=== PATIENT | female | born 1975 | race Caucasian/White ===

== ENCOUNTER 2018-01-01 18:24 | Inpatient (IN) | payer MEDICAID ==
[~2018-01-01] VITALS: Ht 162.6 cm; Wt 112.0 kg
[~2018-01-01 18:24] MED LIST: ACETAMINOPHEN 325 MG TAB PO PRN; BISACODYL 10 MG SUPP RECTAL PRN; HYDROmorphone HCL PF 1 MG/ML VIAL IV PUSH PRN; LACTULOSE SYRUP 20 GM/30 ML CUP PO PRN; LEVO125T4 PO; LOVA40TA PO; MAGN400T2 PO; MAGN400T24; MAGNESIUM HYDROXIDE SUSP 30 ML CUP PO PRN; METOCLOPRAMIDE HCL 10 MG/2 ML VIAL IV PUSH PRN; NALOXONE HCL 0.4 MG/ML AMP IV PUSH PRN; OMEP40CA2 PO; ONDANSETRON HCL 4 MG/2 ML VIAL IVP PRN; PROM25TA10 PO; PROP10TA6 PO; PROP80TA PO; SENNOSIDES 8.6 MG TAB PO PRN; SODIUM CHLORIDE 0.9% FLUSH 10 ML FLUSH IV FLUSH PRN; TEMAZEPAM 15 MG CAP PO PRN; TRAM50TA PO; XANA1TAB2 PO; oxyCODONE/ACETAMINOPHEN 10 MG/325 MG TAB PO PRN; oxyCODONE/ACETAMINOPHEN 5 MG/325 MG TAB PO PRN
[2018-01-01 18:45] VITALS: BP 117/87; PULSE 76; RESP 14; TEMP 96.3; O2SAT 93
[2018-01-01] MEDS: PROCHLORPERAZINE INJ 10 MG/2 ML VIAL IV PRN (19:14)
[2018-01-01] MEDS: LACTATED RINGER'S 1000 ML INJ 1,000 ML IV SCH (19:16)
[2018-01-01 20:00] VITALS: PULSE 75
[2018-01-01] MEDS: SODIUM CHLORIDE 0.9% FLUSH 10 ML FLUSH IV FLUSH SCH (21:00)
[2018-01-01] MEDS: DOCUSATE SODIUM 50 MG/SENNA 8.6 MG TAB PO SCH (21:00)
[2018-01-01] MEDS ORDERED: SODIUM CHLORIDE 0.9% FLUSH 10 ML FLUSH IV FLUSH SCH (21:00)
[2018-01-01] MEDS: PROPRANOLOL HCL 40 MG TAB PO SCH ×2 (21:00→21:15)
[2018-01-01] MEDS: ENOXAPARIN SODIUM 30 MG/0.3 ML SYRINGE SQ SCH (21:16)
[2018-01-01 21:22] VITALS: O2SAT 98
[2018-01-01] MEDS: HYDROmorphone HCL PF 2 MG/ML VIAL IV PRN (22:08)
[2018-01-01] MEDS ORDERED: HYDROmorphone HCL PF 2 MG/ML VIAL IV PRN (22:15)
[2018-01-01 22:24] LABS: CHOLESTEROL/ HDL RATIO 7.52 RATIO; HDL CHOLESTEROL 26.3 MG/DL (40.0-60.0)
[2018-01-02] VITALS: BP 120/65; PULSE 71; RESP 18; TEMP 96.3; O2SAT 94
[2018-01-02] MEDS: ALPRAZolam 1 MG TAB PO PRN ×2 (01:16→20:58)
[2018-01-02] MEDS: PROCHLORPERAZINE INJ 10 MG/2 ML VIAL IV PRN ×3 (02:21→17:48)
[2018-01-02] MEDS: LACTATED RINGER'S 1000 ML INJ 1,000 ML IV SCH (03:49)
[2018-01-02] MEDS: HYDROmorphone HCL PF 2 MG/ML VIAL IV PRN ×5 (03:52→23:54)
[2018-01-02 04:00] VITALS: BP 101/58; PULSE 82; RESP 18; TEMP 96.2; O2SAT 93
[2018-01-02] MEDS: LEVOTHYROXINE SODIUM 125 MCG TAB PO SCH (06:03)
[2018-01-02 07:08] LABS: BASOPHIL # 0.1 TH/MM3 (0-0.2); BASOPHIL % 0.7 % (0.0-2.0); EOSINOPHIL # 0.2 TH/MM3 (0-0.4); EOSINOPHIL % 1.4 % (0.0-4.0); HEMATOCRIT 33.4 % (35.0-46.0); HEMOGLOBIN 10.4 GM/DL (11.6-15.3); LYMPH % 31.1 % (9.0-44.0); LYMPHOCYTE # 3.6 TH/MM3 (1.0-4.8); MEAN CELL VOLUME 78.9 FL (80.0-100.0); MEAN CORPUSCULAR HEMOGLOBIN 24.5 PG (27.0-34.0); MEAN PLATELET VOLUME 8.9 FL (7.0-11.0); MONO % 4.9 % (0.0-8.0); MONOCYTE # 0.6 TH/MM3 (0-0.9); NEUT % 61.9 % (16.0-70.0); PLATELET COUNT 268 TH/MM3 (150-450); RED BLOOD COUNT 4.24 MIL/MM3 (4.00-5.30); RED CELL DISTRIBUTION WIDTH 17.1 % (11.6-17.2); WHITE BLOOD COUNT 11.4 TH/MM3 (4.0-11.0)
[2018-01-02 07:16] LABS: CHLORIDE 109 MEQ/L (98-107); SODIUM (NA) 142 MEQ/L (136-145)
[2018-01-02 07:24] LABS: ALBUMIN 2.5 GM/DL (3.4-5.0); BLOOD UREA NITROGEN 9 MG/DL (7-18); GLUCOSE,RANDOM 88 MG/DL (74-106); MAGNESIUM 1.2 MG/DL (1.5-2.5)
[2018-01-02 07:26] LABS: ALT (GPT) 12 U/L (10-53); AST (GOT) 11 U/L (15-37)
[2018-01-02 07:27] LABS: GLOMERULAR FILTRATION RATE 29 ML/MIN (>89); PHOSPHORUS 3.4 MG/DL (2.5-4.9)
[2018-01-02 07:28] LABS: TOTAL BILIRUBIN ADULT 0.6 MG/DL (0.2-1.0); TOTAL PROTEIN 6.1 GM/DL (6.4-8.2)
[2018-01-02 07:29] LABS: ALKALINE PHOSPHATASE 80 U/L (45-117)
[2018-01-02 08:00] VITALS: BP 112/68; PULSE 75; PULSE 78; RESP 18; TEMP 96; O2SAT 95
[2018-01-02] MEDS ORDERED: NS + KCL 20 MEQ INJ 1,000 ML IV SCH (08:00)
[2018-01-02] MEDS: PRAVASTATIN SOD 40 MG TAB PO SCH (08:07)
[2018-01-02] MEDS: PANTOPRAZOLE SOD 40 MG DELAYED RELEASE TAB PO SCH (08:07)
[2018-01-02] MEDS: DOCUSATE SODIUM 50 MG/SENNA 8.6 MG TAB PO SCH ×2 (08:09→19:08)
[2018-01-02] MEDS: SODIUM CHLORIDE 0.9% FLUSH 10 ML FLUSH IV FLUSH SCH ×2 (08:09→21:00)
[2018-01-02] MEDS ORDERED: traMADol HCL 50 MG TAB PO PRN (09:30)
[2018-01-02 10:03] LABS: FREE T4 1.39 NG/DL (0.76-1.46)
--- NOTE | 2018-01-02 11:19 | HHI.HP ---
[facility] No Primary Care Physician Admission Diagnosis Diagnoses: History of Present Illness nausea, vomiting, diarrhea diarhrea is for a month - 8-9 x a day, or soon as she eats something was on outpatient antibiotics luis manuel arellano has been eating broths and sti having darrhe abdominal pain is both upper and lower abdomena dn across to flank bialterally never had fever was on prednisone at home cholecystectomy was about 2 yrs ago- but was normal bowel movement after that, and all symptoms happened only past one month vomiting is about 5 x a day - for past 3 days no blood in it only when she wipes her buttocks, that she has streaks of blood- has hx of throbosed hemorroids abdominal pain is recent- maybe 4 days ago has increase of synthroid from 125 to 150 mcg about 4 weeks ago was told parathyroid issues and was waiting for insurance issues to see endocrinoogist have been havign palpitiation but no chest pain dyspnea is only last night, partly because she did not take her xanax dizziness because she has no strenght and even needed help from for taking shower has stage IV kidney dx was told she has nephrotic syndrome- [facility] Dr Enriquez did have kidney biopsy- was told nephrotic syndrome, but not due to SLE father has PCKD noticed she has to push hard to urinate, for past few weeks- has hx of kidney stones prior requring sx, and was told by her neph that it maybe secondary to it Review of Systems Except as stated in HPI: all other systems reviewed are Neg Past Family Social History Past Medical History htn anemia heart murmur when she was born stage IV CKD chronic hypomagnesemia palpitations due to hypomagnesium SLE - systemic - diagnosed in 2012- bones, muscles, pancreas, eyes, skin rash, memory impairment hypothyroidism gastroparesis no lung or liver issues no tia /cva seizure- diagonsed abnout 6 yrs ago, based on eye symptoms from lupus and pt is not taking any seizure meds melanoma at left upper extremity at age 6 yo- had 5 surgeries for it Past Surgical History left arm sx for melanoma at age 6 yo tonsilectomy kidney stone sx hysterectomy partial D+C emergency 2 perianal hemorrhoidectomy another hemorridectomy cholecystectomy kidney biopsy Allergies: Coded Allergies: codeine (Verified Allergy, Severe, 01/01/18) iodine (Verified Allergy, Severe, 01/01/18) metoclopramide (Verified Allergy, Severe, HIVES, 01/01/18) ondansetron (Verified Allergy, Severe, 01/01/18) Uncoded Allergies: Oral pain medications (Allergy, Unknown, Per patient allergic to all oral pain medications., 09/30/17) Family History mother- lupus , cva, brain aneurysm, ischemic bowel father- kidney pckd brother- pckd grandmother- cva Social History smokes about 8 cigarrettes a day only once in a while drinking wine no drugs Physical Exam Vital Signs Vital Signs Date Time Temp Pulse Resp B/P (MAP) Pulse Ox O2 Delivery O2 Flow Rate FiO2 01/02/18 08:00 96.0 75 18 112/68 (83) 95 01/02/18 08:00 78 01/02/18 04:00 96.2 82 18 101/58 (72) 93 01/02/18 00:00 96.3 71 18 120/65 (83) 94 01/01/18 21:22 98 21 01/01/18 20:00 75 01/01/18 18:45 96.3 76 14 117/87 (97) 93 Physical Exam GENERAL: This is a well-nourished, well-developed patient, in no apparent distress. SKIN: No rashes, ecchymoses or lesions. Cool and dry. HEAD: Atraumatic. Normocephalic. No temporal or scalp tenderness. EYES: No scleral icterus. No injection or drainage. ENT: Nose without bleeding, purulent drainage or septal hematoma. Airway patent. NECK: Trachea midline. No JVD. Supple, nontender, no meningeal signs. CARDIOVASCULAR: Regular rate and rhythm without murmurs, gallops, or rubs. RESPIRATORY: Clear to auscultation. Breath sounds equal bilaterally. No wheezes , rales, or rhonchi. GASTROINTESTINAL: Abdomen soft, nondistended. . No guarding.tenderness diffusely MUSCULOSKELETAL: Extremities without clubbing, cyanosis, or edema. No calf tenderness. NEUROLOGICAL: Awake and alert. Motor and sensory grossly within normal limits. Normal speech. Laboratory Laboratory Tests Test 01/01/18 15:05 01/02/18 05:55 C-Reactive Protein 1.70 Triglycerides Level 287 Cholesterol Level 198 LDL Cholesterol 114 HDL Cholesterol 26.3 Cholesterol/HDL Ratio 7.52 White Blood Count 11.4 Red Blood Count 4.24 Hemoglobin 10.4 Hematocrit 33.4 Mean Corpuscular Volume 78.9 Mean Corpuscular Hemoglobin 24.5 Mean Corpuscular Hemoglobin Concent 31.0 Red Cell Distribution Width 17.1 Platelet Count 268 Mean Platelet Volume 8.9 Neutrophils (%) (Auto) 61.9 Lymphocytes (%) (Auto) 31.1 Monocytes (%) (Auto) 4.9 Eosinophils (%) (Auto) 1.4 Basophils (%) (Auto) 0.7 Neutrophils # (Auto) 7.0 Lymphocytes # (Auto) 3.6 Monocytes # (Auto) 0.6 Eosinophils # (Auto) 0.2 Basophils # (Auto) 0.1 CBC Comment AUTO DIFF Differential Comment AUTO DIFF CONFIRMED Platelet Estimate NORMAL Platelet Morphology Comment NORMAL Blood Urea Nitrogen 9 Creatinine 1.90 Random Glucose 88 Total Protein 6.1 Albumin 2.5 Calcium Level 8.0 Phosphorus Level 3.4 Magnesium Level 1.2 Alkaline Phosphatase 80 Aspartate Amino Transf (AST/SGOT) 11 Alanine Aminotransferase (ALT/SGPT) 12 Total Bilirubin 0.6 Sodium Level 142 Potassium Level 3.5 Chloride Level 109 Carbon Dioxide Level 25.0 Anion Gap 8 Estimat Glomerular Filtration Rate 29 Amylase Level 48 Lipase 424 Free Thyroxine 1.39 Thyroid Stimulating Hormone 3rd Gen 0.862 Result Diagram: 01/02/1855401/02/18554 Caprini VTE Risk Assessment Caprini VTE Risk Assessment: Mod/High Risk (score >= 2) Caprini Risk Assessment Model Point Value = 1 Point Value = 2 Point Value = 3 Point Value = 5 Age 41-60 Minor surgery BMI > 25 kg/m2 Swollen legs Varicose veins or History of unexplained or recurrent spontaneous Oral contraceptives or hormone replacement Sepsis (< 1 month) Serious lung disease, including pneumonia (< 1 month) Abnormal pulmonary function Acute myocardial infarction Congestive heart failure (< 1 month) History of inflammatory bowel disease Medical patient at bed rest Age 61-74 Arthroscopic surgery Major open surgery (> 45 min) Laparoscopic surgery (> 45 min) Malignancy Confined to bed (> 72 hours) Immobilizing plaster cast Central venous access Age >= 75 History of VTE Family history of VTE Factor V Leiden Prothrombin [id number] Lupus anticoagulant Anticardiolipin antibodies Elevated serum homocysteine Heparin-induced thrombocytopenia Other congenital or acquired thrombophilia Stroke (< 1 month) Elective arthroplasty Hip, pelvis, or leg fracture Acute spinal cord injury (< 1 month) Prophylaxis Regimen Total Risk Factor Score Risk Level Prophylaxis Regimen 0-1 Low Early ambulation 2 Moderate Order ONE of the following: *Sequential Compression Device (SCD) *Heparin 5000 units SQ BID 3-4 Higher Order ONE of the following medications: *Heparin 5000 units SQ TID *Enoxaparin/Lovenox 40 mg SQ daily (WT < 150 kg, CrCl > 30 mL/min) *Enoxaparin/Lovenox 30 mg SQ daily (WT < 150 kg, CrCl > 10-29 mL/min) *Enoxaparin/Lovenox 30 mg SQ BID (WT < 150 kg, CrCl > 30 mL/min) AND/OR *Sequential Compression Device (SCD) 5 or more Highest Order ONE of the following medications: *Heparin 5000 units SQ TID (Preferred with Epidurals) *Enoxaparin/Lovenox 40 mg SQ daily (WT < 150 kg, CrCl > 30 mL/min) *Enoxaparin/Lovenox 30 mg SQ daily (WT < 150 kg, CrCl > 10-29 mL/min) *Enoxaparin/Lovenox 30 mg SQ BID (WT < 150 kg, CrCl > 30 mL/min) AND *Sequential Compression Device (SCD) Assessment and Plan Assessment and Plan Impression: Acute pancreatitis mild leukocytosis with left shift hypmagnesium Plan: r/o ischemia - check lacate - given abdomen pain out of proportion to physical exam ct abdomen and pelvis cannnot be done as pt has severe allergy to iodine with anaphylaxis obtain US of abdomen gi consult for colonoscopy no bowel obstruction on xray stool studies stool for guiaic and cdiff iv hydration npo pain control no antibiotics for now replace electrolytes ua reviewed, negative for infection resume home meds pt is admitted as inpatient- agreed with certification chronically ill immunocompromised patient with systemic lupus, and chronic diarrhea- will need further workup. dvt prophylaxis with lovenox renal adjusted dose gi prophylaxis with pantoprazole Discussed Condition With patient, Cindi Lebron MD Jan 02, 2018 11:19
[2018-01-02] MEDS ORDERED: HYDROmorphone HCL PF 2 MG/ML VIAL IV PUSH PRN (11:45)
[2018-01-02 12:00] VITALS: BP 145/85; PULSE 84; RESP 16; TEMP 96.1; O2SAT 97
[2018-01-02] MEDS: MAGNESIUM OXIDE 400 MG TAB PO SCH (12:13)
[2018-01-02] MEDS: POTASSIUM CHLORIDE INJ 20 MEQ in SODIUM CHLOR 0.9% 1000 ML INJ 1,000 ML IV SCH ×2 (12:14→18:02)
[2018-01-02 13:23] LABS: CALCIUM 7.7 MG/DL (8.5-10.1)
[2018-01-02 13:24] LABS: BICARBONATE 22.2 MEQ/L (21.0-32.0); MAGNESIUM 1.2 MG/DL (1.5-2.5)
[2018-01-02 13:27] LABS: CREATININE 1.9 MG/DL (0.50-1.00)
[2018-01-02 16:00] VITALS: BP 113/93; PULSE 74; PULSE 78; RESP 16; TEMP 95.7; O2SAT 94
[2018-01-02 16:13] LABS: HEMOGLOBIN A1C 6.3 % (4.3-6.0)
[2018-01-02 20:00] VITALS: BP 126/75; PULSE 78; PULSE 92; RESP 20; TEMP 96.1; O2SAT 94
[2018-01-02] MEDS: ENOXAPARIN SODIUM 30 MG/0.3 ML SYRINGE SQ SCH (20:59)
[2018-01-03] VITALS (7 sets, daily range): BP systolic 133–163; BP diastolic 75–86; PULSE 84–98; RESP 16–22; TEMP 96.4–97.4; O2SAT 93–98
[2018-01-03] MEDS: PROCHLORPERAZINE INJ 10 MG/2 ML VIAL IV PRN ×3 (04:19→20:42)
[2018-01-03] MEDS: POTASSIUM CHLORIDE INJ 20 MEQ in SODIUM CHLOR 0.9% 1000 ML INJ 1,000 ML IV SCH ×2 (04:19→18:18)
[2018-01-03] MEDS: HYDROmorphone HCL PF 2 MG/ML VIAL IV PRN ×4 (04:20→23:25)
[2018-01-03] MEDS: LEVOTHYROXINE SODIUM 125 MCG TAB PO SCH (06:22)
[2018-01-03] MEDS: PRAVASTATIN SOD 40 MG TAB PO SCH (08:31)
[2018-01-03] MEDS: PANTOPRAZOLE SOD 40 MG DELAYED RELEASE TAB PO SCH (08:31)
[2018-01-03] MEDS: SODIUM CHLORIDE 0.9% FLUSH 10 ML FLUSH IV FLUSH SCH ×2 (08:31→20:42)
[2018-01-03] MEDS: DOCUSATE SODIUM 50 MG/SENNA 8.6 MG TAB PO SCH ×2 (09:00→19:56)
--- NOTE | 2018-01-03 09:16 | RADRPT ---
EXAM DATE/TIME: 01/03/2018 08:12 [facility] COMPARISON: ABDOMEN FLAT & UPRIGHT, January 01, 2018, 15:27. INDICATIONS : Abdomen pain. MEDICAL HISTORY : Hypothyroidism. Hypercholesterolemia. Hypertension. C-diff. Endometriosis. Arthritis. Anxiety. Anemia . Lupus. Kidney failure. Kidney stones. SURGICAL HISTORY : Hysterectomy. Cholecystectomy. ENCOUNTER: Initial ACUITY: 1 month PAIN SCORE: 4/10 LOCATION: Abdomen. MEASUREMENTS: LIVER: 19.8 cm length COMMON DUCT: 6 mm RIGHT KIDNEY: 8.9 x 4.5 x 4.3 cm LEFT KIDNEY: 10.0 x 4.3 x 4.8 cm SPLEEN: 11.0 cm length AORTA: 2.6cm maximal FINDINGS: LIVER: Mild increased echotexture without focal lesion or ductal dilatation. COMMON DUCT: No intraluminal mass or stone visualized. GALLBLADDER: Surgically absent. However, there is a fluid-filled structure with a shape similar to the gallbladde r near the gallbladder fossa which presumably represents bowel given the reported cholecystectomy. PANCREAS: The visualized portions are within normal limits. RIGHT KIDNEY: No hydronephrosis, stone or mass. LEFT KIDNEY: No hydronephrosis, stone or mass. There is a cystic lesion at the lower pole of the left kidney cari uring 2.9 x 3.0 x 2.4 cm it has lobulated contour it contains a thin septation. SPLEEN: No focal lesion. AORTA: Non aneurysmal. IVC: Within normal limits. CONCLUSION: 1. No acute finding is identified to explain the abdominal pain. 2. Mild hepatomegaly with steatosis. There is a mildly complex left lower pole renal cystic lesion me asuring 3 cm. Suhas Tanner MD on January 03, 2018 at 9:12 Board Certified Radiologist. This report was verified electronically.
--- NOTE | 2018-01-03 09:25 | MB ---
cc: Mary Osman MD DATE OF CONSULT: 01/02/2018 REFERRING PHYSICIAN: Cindi Lebron MD REASON FOR CONSULTATION: Diarrhea. Ms. Matthews is a 42-year-old lady with multiple medical problems, came to emergency room with complaints of severe pain in lower abdomen, diarrhea, going for approximately a month. The patient stated that she went to see her primary care doctor. She was given antibiotics. She is not clear if it was Cipro or Bactrim. She took those antibiotics for almost a week with no improvement in her symptoms. She did have some nausea and vomiting. She complains mostly of pain lower abdomen. States the pain is crampy, very severe in nature, and she has urgency. She also has chronic pancreatitis. The pain is a little bit different. It is mostly in the upper abdomen. There is no weight loss. She does have some red blood when she wipes. She had an endoscopy x 2, last endoscopy was back at [facility]. She states she was diagnosed with gastroparesis. She had a large amount of food sitting in her stomach at that time. Never had a colonoscopy. Denies any recent travel, sick contacts or antibiotic use before the diarrhea. She was diagnosed with nephrotic syndrome. She is currently followed by hammer adjuster. PAST MEDICAL HISTORY: High blood pressure, anemia, nephrotic syndrome, chronic hypomagnesemia, lupus/SLE that involve bone, muscle, pancreas, eyes, skin, memory impairment; hypothyroidism, gastroparesis, history of some seizure disorder diagnosed 6 years ago, melanoma on upper extremities, obesity, past heart murmur since . PAST SURGICAL HISTORY: Left arm surgery for melanoma, tonsillectomy, kidney stone, hysterectomy, D and C, 2 perianal hemorrhoidectomy, cholecystectomy and kidney biopsy. ALLERGIES: CODEINE, IODINE, METACLOPIRMIDE AND ZOFRAN. ALSO, ORAL PAIN MEDICATION, CANNOT TOLERATE. FAMILY HISTORY: Mother had lupus, CVA, ischemic bowel. Father had polycystic kidney disease. Brother had polycystic kidney disease. Grandmother, CVA. SOCIAL HISTORY: Smokes eight cigarettes per day. Drinks wine. No illicit drug use. MEDICATIONS: Currently, she is taking potassium IV, magnesium oxide, tramadol p.r.n., Pravachol, Protonix, Dilaudid, Synthroid, IV fluids, Senokot, Lovenox, Compazine, Restoril, Xanax. REVIEW OF SYSTEMS: She denies any fever currently and chills. She stated she did have some chills for the last 10 days on and off but not currently. No fever. She denies any weight loss or weight gain. ENT: No alteration of baseline hearing or visual activity. PULMONARY: Denies any chest pain, shortness of breath. GASTROINTESTINAL: As above. GENITOURINARY: Denies dysuria or hematuria. HEMATOLOGIC: Does have history of anemia. No bleeding disorders. SKIN: No alteration of baseline or skin lesion. NEUROLOGIC: No history of TIA or CVA kind of symptoms in the recent past. CLINICAL EXAMINATION: She is sitting in bed, in no acute distress, obese. VITALS: Temperature 95.7, pulse 74, blood pressure 113/93, pulse ox 94. HEENT: PERRLA. NECK: No JVD, no lymphadenopathy. CHEST: Clear to auscultation and palpation. CARDIOVASCULAR: S1, S2, no murmur. ABDOMEN: Obese, bowel sounds are present. Tenderness in the lower abdomen, left upper quadrant. CENTRAL NERVOUS SYSTEM: Awake, alert, oriented x 3. No focal signs of identified. SKIN: No skin lesion. Her hemoglobin is 10.4, white count 11.4, MCV 78.9, platelets 268. Chemistry is suggestive of triglycerides 287, cholesterol 198. Her BUN 9, creatinine 1.9. Lactic acid 7.7. Hemoglobin A1c 6.3. Her liver enzymes are normal. Did not have any abdominal imaging since her admission. IMPRESSION: Ms. Matthews is an unfortunate 42-year-old lady with multiple medical problems admitted with severe abdominal pain, diarrhea for almost a month, not improved by outpatient therapy. Differential includes infectious colitis, ischemic colitis, inflammatory bowel disease, colitis. Abdominal pain, nausea and vomiting, history of pancreatitis, possible acute exacerbation. Anemia, multifactorial, most likely secondary to chronic disease. No indication of active bleed at this time. RECOMMENDATIONS: Stool studies for ova and parasites, C. difficile, Giardia. CT abdomen and pelvis was already ordered. Supportive care. Await stool studies and CT abdomen and pelvis. If this is negative, consider upper endoscopy and colonoscopy. Continue current management. I would like to thank Dr. Lebron for referring her to our office for consultation. Further recommendations will depend on the patient's clinical studies and the above results. MD LANDON Guzman/ROBBIE , 06:51 PM , 07:39 PM [facility]
--- NOTE | 2018-01-03 10:42 | HHI.PR ---
Subjective Remarks Patient seen and examined today for follow-up on abdominal pain, nausea, vomiting, diarrhea. Patient sitting in bed style, does not appear to be any significant pain. There were episodes while I was in there that she did have some retching. Patient has not had a bowel movement since admission. Has not been able to obtain stool study. Patient was asking for stool softener in order to give a stool sample. Discussed with the patient her pain control. Patient indicates that she is not allergic to all oral pain medication. She does indicate that the combination of tramadol and Phenergan does help for her chronic abdominal pain, nausea, vomiting. The patient is not been able to follow-up with her outpatient garbage truck driver because of insurance reasons. Finishing Range Operator did evaluate the patient and recommending CT scan of the abdomen, however that has not been able to be performed due to her iodine allergy. Also requesting stool studies to be performed. If all negative then possible endoscopies can be performed. Objective Vitals Vital Signs Date Time Temp Pulse Resp B/P (MAP) Pulse Ox O2 Delivery O2 Flow Rate FiO2 01/03/18 08:20 97 01/03/18 08:00 97.0 97 16 133/85 (101) 94 01/03/18 04:00 96.7 92 20 163/79 (107) 95 01/03/18 00:00 96.4 98 20 133/82 (99) 96 01/02/18 20:00 96.1 92 20 126/75 (92) 94 01/02/18 20:00 78 01/02/18 16:00 95.7 78 16 113/93 (100) 94 01/02/18 16:00 74 01/02/18 12:00 96.1 84 16 145/85 (105) 97 I/O 01/02/18 01/02/18 01/02/18 01/03/18 01/03/18 01/03/18 07:00 15:00 23:00 07:00 15:00 23:00 Intake Total 0 ml 825 ml 1450 ml 1402 ml 0 ml Balance 0 ml 825 ml 1450 ml 1402 ml 0 ml Intake Oral 0 ml 825 ml 240 ml 480 ml 0 ml IV Total 1210 ml 922 ml # Voids 4 1 2 4 Result Diagram: 01/02/18 0555 01/02/18 1245 Objective Remarks GENERAL: Well-developed, well-nourished, in no acute distress. alert and orientated HEENT: Head is normocephalic without any lesions or masses noted. Facial features are symmetric. Eyes: Extraocular muscles are intact. Conjunctivae were clear. NECK: Supple without any masses. Trachea midline no deviation. No JVD, CARDIAC: Regular rhythm, regular rate. S1/S2 are heard. No murmurs gallops or rubs. LUNGS: Clear to auscultation bilaterally. No wheeze, rhonchi or rales. No use of accessory muscles on inspiration or expiration. ABDOMEN: Soft, nontender. Nondistended. Bowel sounds heard in all 4 quadrants. No organomegaly or masses. Negative rebound, negative guarding EXTREMITIES: No edema, pulses are equal bilaterally. No cyanosis or clubbing NEUROLOGY: Mood and affect appear appropriate. Cranial nerves II through XII grossly intact. Moving all extremities, speech is clear Urinary Catheter: No Vascular Central Line Catheter: No A/P Assessment and Plan Abdominal pain with associated nausea, vomiting, diarrhea Unknown etiology, objective workup is unremarkable thus far Patient did have mildly elevated lipase on presentation, ultrasound does not indicate any pancreatitis Patient does indicate that she can use tramadol/Phenergan combination for pain control. However she is only using IV Dilaudid Abdominal x-ray and ultrasound do not show any acute abnormality. Does indicate hepatomegaly with steatosis. Mildly complex left lower pole renal cystic lesion measuring 3 cm Finishing Range Operator was consulted and indicating that if workup is negative may perform endoscopies Chronic kidney disease stage IV Renal functions appear to be improved from previous studies Continue IV fluids Hypertension, hyperlipidemia Home medications have been continued Hypothyroidism Continue home medications DVT prevention Subcutaneous Lovenox Tony Arce Jan 03, 2018 10:42
[2018-01-03] MEDS ORDERED: HYDROmorphone HCL PF 2 MG/ML VIAL IV PRN (11:00)
[2018-01-03] MEDS ORDERED: WALKER WHEELS/F1 MIS (11:22)
[2018-01-03] MEDS: MAGNESIUM OXIDE 400 MG TAB PO SCH (11:43)
[2018-01-03] MEDS: PROMETHAZINE HCL 25 MG TAB PO PRN (13:56)
[2018-01-03] MEDS: traMADol HCL 50 MG TAB PO PRN ×2 (15:21→21:32)
--- NOTE | 2018-01-03 16:55 | HHI.GIFU ---
GI Follow-up Note Consult Follow-up Subjective: Patient laying in bed comfortably, had a small amount of stool.No vomiting , tolerated clear liquids .No melena, hematemesis , hematochezia . Objective: PHYSICAL EXAMINATION: Vitals signs stable No fever Vital Signs Date Time Temp Pulse Resp B/P (MAP) Pulse Ox O2 Delivery O2 Flow Rate FiO2 01/03/18 16:00 96.6 95 16 156/82 (106) 98 01/03/18 12:00 97.4 98 16 140/86 (104) 93 HEENT: Pupils round and reactive to light; normocephalic; atraumatic; no jaundice. Throat is clear. NECK: Neck is supple, no JVD, no lymphadenopathy. CHEST: Chest is clear to auscultation and percussion. CARDIAC: Regular rate and rhythm with no murmur gallop or rubs. ABDOMEN: Soft, nondistended, nontender; no hepatosplenomegaly; bowel sounds are present in all four quadrants, obese EXTREMITIES: No clubbing, cyanosis, or edema. SKIN: Normal; no rash; no jaundice. HACK DRIVER: No focal deficits; alert and oriented times three. Available Data (labs, X- Rays, Procedues) : Laboratory Tests Test 01/02/18 05:55 01/02/18 12:45 White Blood Count 11.4 TH/MM3 Red Blood Count 4.24 MIL/MM3 Hemoglobin 10.4 GM/DL Hematocrit 33.4 % Mean Corpuscular Volume 78.9 FL Mean Corpuscular Hemoglobin 24.5 PG Mean Corpuscular Hemoglobin Concent 31.0 % Red Cell Distribution Width 17.1 % Platelet Count 268 TH/MM3 Mean Platelet Volume 8.9 FL Neutrophils (%) (Auto) 61.9 % Lymphocytes (%) (Auto) 31.1 % Monocytes (%) (Auto) 4.9 % Eosinophils (%) (Auto) 1.4 % Basophils (%) (Auto) 0.7 % Neutrophils # (Auto) 7.0 TH/MM3 Lymphocytes # (Auto) 3.6 TH/MM3 Monocytes # (Auto) 0.6 TH/MM3 Eosinophils # (Auto) 0.2 TH/MM3 Basophils # (Auto) 0.1 TH/MM3 CBC Comment AUTO DIFF Differential Comment AUTO DIFF CONFIRMED Platelet Estimate NORMAL Platelet Morphology Comment NORMAL Blood Urea Nitrogen 9 MG/DL 9 MG/DL Creatinine 1.90 MG/DL 1.90 MG/DL Random Glucose 88 MG/DL 117 MG/DL Total Protein 6.1 GM/DL Albumin 2.5 GM/DL Calcium Level 8.0 MG/DL 7.7 MG/DL Phosphorus Level 3.4 MG/DL Magnesium Level 1.2 MG/DL 1.2 MG/DL Alkaline Phosphatase 80 U/L Aspartate Amino Transf (AST/SGOT) 11 U/L Alanine Aminotransferase (ALT/SGPT) 12 U/L Total Bilirubin 0.6 MG/DL Sodium Level 142 MEQ/L 140 MEQ/L Potassium Level 3.5 MEQ/L 3.5 MEQ/L Chloride Level 109 MEQ/L 108 MEQ/L Carbon Dioxide Level 25.0 MEQ/L 22.2 MEQ/L Anion Gap 8 MEQ/L 10 MEQ/L Estimat Glomerular Filtration Rate 29 ML/MIN 29 ML/MIN Hemoglobin A1c 6.3 % Amylase Level 48 U/L Lipase 424 U/L Free Thyroxine 1.39 NG/DL Thyroid Stimulating Hormone 3rd Gen 0.862 uIU/ML Lactic Acid Level 1.0 mmol/L ASSESSMENT/PLAN: abdominal pain, diarrhea for 1 month-awaiting stool studies abdominal pain , mild elevated lipase-improving nausea-slightly better fatty liver -weight loss,increase exercise kidney cyst-as per patient old Recommendations fu stool studies ct abdomen/pelvis with no contrast iv antibiotics egd/colon op vs inpatient depending on stool studies, ct report and patient clinical status It was a pleasure seeing Ashanti Matthews. Thank you for this consult. Entered by: Mary Quach MD Jan 03, 2018 16:55
[2018-01-03] MEDS: ENOXAPARIN SODIUM 30 MG/0.3 ML SYRINGE SQ SCH (20:41)
[2018-01-03] MEDS: ALPRAZolam 1 MG TAB PO PRN (21:31)
--- NOTE | 2018-01-03 21:56 | RADRPT ---
EXAM DATE/TIME: 01/03/2018 17:56 [facility] COMPARISON: No previous studies available for comparison. INDICATIONS : Lower and upper abdominal pain with nausea and vomiting. ORAL CONTRAST: None RADIATION DOSE: 27.54 CTDIvol (mGy) ; Patient body habitus MEDICAL HISTORY : Lupus. Cardiovascular disease Renal failure, acute. SURGICAL HISTORY : Cholecystectomy. Hysterectomy. ENCOUNTER: Initial ACUITY: 1 week PAIN SCALE: 8/10 LOCATION: upper quadrant and lower quadrant abdomen TECHNIQUE: Volumetric scanning of the abdomen and pelvis was performed. Using automated exposure control and ad justment of the mA and/or kV according to patient size, radiation dose was kept as low as reasonably achievable to obtain optimal diagnostic quality images. DICOM format image data is available electro nically for review and comparison. FINDINGS: LOWER LUNGS: Bibasilar atelectasis and/or scarring is noted. LIVER: The liver is enlarged. Focal lesions are difficult to rule out without intravenous contrast. No bilia ry ductal dilatation is noted. The gallbladder has been resected. SPLEEN: Normal size without lesion. PANCREAS: Within normal limits. KIDNEYS: Normal in size and shape. There is no mass, stone, or hydronephrosis. There is a cyst within the low er pole the left kidney measuring 3.2 cm. ADRENAL GLANDS: Within normal limits. VASCULAR: There is no aortic aneurysm. BOWEL/MESENTERY: The stomach, small bowel, and colon demonstrate no acute abnormality. There is no free intraperitone al air or fluid. ABDOMINAL WALL: Within normal limits. RETROPERITONEUM: There is no lymphadenopathy. BLADDER: No wall thickening or mass. REPRODUCTIVE: There is a left adnexal mass measuring 4.5 x 3.9 cm which is indeterminate. Pelvic ultrasound may be helpful for further evaluation of this finding. INGUINAL: There is no lymphadenopathy or hernia. MUSCULOSKELETAL: Within normal limits for patient age. CONCLUSION: 1. Hepatomegaly. 2. 4.5 x 3.9 cm left adnexal mass which is indeterminate. Pelvic ultrasound may be helpful for furthe r evaluation this finding if clinically indicated. 3. Left lower pole renal cyst measuring 3.2 cm. 4. Bibasilar atelectasis and/or scarring. Navarro Vazquez MD on January 03, 2018 at 21:51 Board Certified Radiologist. This report was verified electronically.
[2018-01-04] VITALS: BP 128/73; PULSE 98; RESP 22; TEMP 96.7; O2SAT 91
[2018-01-04] MEDS: POTASSIUM CHLORIDE INJ 20 MEQ in SODIUM CHLOR 0.9% 1000 ML INJ 1,000 ML IV SCH (02:45)
[2018-01-04] MEDS: PROMETHAZINE HCL 25 MG TAB PO PRN (04:49)
[2018-01-04] MEDS: LEVOTHYROXINE SODIUM 125 MCG TAB PO SCH (04:49)
[2018-01-04] MEDS: traMADol HCL 50 MG TAB PO PRN ×2 (04:50→11:33)
[2018-01-04] MEDS: HYDROmorphone HCL PF 2 MG/ML VIAL IV PRN (05:22)
[2018-01-04 05:57] LABS: HEMATOCRIT 34.4 % (35.0-46.0); HEMOGLOBIN 10.8 GM/DL (11.6-15.3); MEAN CELL VOLUME 78.7 FL (80.0-100.0); MEAN CORPUSCULAR HEMOGLOBIN 24.7 PG (27.0-34.0); MEAN CORPUSCULAR HGB CONC 31.4 % (32.0-36.0); MEAN PLATELET VOLUME 8.9 FL (7.0-11.0); PLATELET COUNT 273 TH/MM3 (150-450); RED BLOOD COUNT 4.37 MIL/MM3 (4.00-5.30); RED CELL DISTRIBUTION WIDTH 16.9 % (11.6-17.2); WHITE BLOOD COUNT 8.4 TH/MM3 (4.0-11.0)
[2018-01-04 06:11] LABS: CHLORIDE 112 MEQ/L (98-107); SODIUM (NA) 143 MEQ/L (136-145)
[2018-01-04 06:16] LABS: ALBUMIN 2.7 GM/DL (3.4-5.0); BLOOD UREA NITROGEN 6 MG/DL (7-18); CALCIUM 7.8 MG/DL (8.5-10.1); GLUCOSE,RANDOM 77 MG/DL (74-106)
[2018-01-04 06:19] LABS: ALT (GPT) 13 U/L (10-53); AST (GOT) 17 U/L (15-37); GLOMERULAR FILTRATION RATE 29 ML/MIN (>89)
[2018-01-04 06:20] LABS: TOTAL BILIRUBIN ADULT 0.9 MG/DL (0.2-1.0)
[2018-01-04 06:21] LABS: TOTAL PROTEIN 6.6 GM/DL (6.4-8.2)
[2018-01-04 06:22] LABS: ALKALINE PHOSPHATASE 85 U/L (45-117)
[2018-01-04 07:26] LABS: LYMPHOCYTES 32 % (9-44); MONOCYTES 4 % (0-8); NEUTROPHIL # MANUAL DIFF 5.3 TH/MM3 (1.8-7.7); POLYS (SEG NEUTROPHILS) 63 % (16-70)
[2018-01-04 07:58] VITALS: BP 124/62; PULSE 96; RESP 16; TEMP 97.9; O2SAT 93
--- NOTE | 2018-01-04 08:08 | HHI.GIFU ---
GI Follow-up Note Consult Follow-up Subjective: Patient laying in bed comfortably, feeling better, states pain after urinating.No diarrhea, vomiting, tolerating diet .CT abdomen noted-us pelvis in progress. Objective: PHYSICAL EXAMINATION: Vitals signs stable No fever HEENT: Pupils round and reactive to light; normocephalic; atraumatic; no jaundice. Throat is clear. NECK: Neck is supple, no JVD, no lymphadenopathy. CHEST: Chest is clear to auscultation and percussion. CARDIAC: Regular rate and rhythm with no murmur gallop or rubs. ABDOMEN: Soft, nondistended, nontender; no hepatosplenomegaly; bowel sounds are present in all four quadrants. EXTREMITIES: No clubbing, cyanosis, or edema. SKIN: Normal; no rash; no jaundice. BAGGAGE SECURITY CHECKER: No focal deficits; alert and oriented times three. Available Data (labs, X- Rays, Procedues) : Vital Signs Date Time Temp Pulse Resp B/P (MAP) Pulse Ox O2 Delivery O2 Flow Rate FiO2 01/04/18 07:58 97.9 96 16 124/62 (82) 93 ASSESSMENT/PLAN: diarrhea-resolved, stool studies negative -resolved mild pancreatis-resolved abdominal [id number]-[id number],awaiting us pelvis Recommendations fu us pelvis egd/colon if agrees in am or op at this point states she will like to go home if she changes her mind let gi know if dc fu office 2 weeks ok to dc home from gi point trial of bentyl 10 mg po tid It was a pleasure seeing Ashanti Matthews. Thank you for this consult. Entered by: Mary Quach MD Jan 04, 2018 08:08
[2018-01-04] MEDS: PANTOPRAZOLE SOD 40 MG DELAYED RELEASE TAB PO SCH (08:18)
[2018-01-04] MEDS: ALPRAZolam 1 MG TAB PO PRN (08:18)
[2018-01-04] MEDS: PRAVASTATIN SOD 40 MG TAB PO SCH (08:19)
[2018-01-04] MEDS: DOCUSATE SODIUM 50 MG/SENNA 8.6 MG TAB PO SCH (08:20)
[2018-01-04] MEDS: SODIUM CHLORIDE 0.9% FLUSH 10 ML FLUSH IV FLUSH SCH (08:20)
--- NOTE | 2018-01-04 10:55 | RADRPT ---
EXAM DATE/TIME: 01/04/2018 09:21 [facility] COMPARISON: CT ABDOMEN & PELVIS W/O CONTRAST, January 03, 2018, 17:56. INDICATIONS : Pelvic pain. MEDICAL HISTORY : Hypercholesterolemia. Hypertension. Renal calculi. CAD. CVA. Renal failure. Arthritis. Anemia. SURGICAL HISTORY : Tonsillectomy. Hysterectomy. Cholecystectomy. ENCOUNTER: Initial ACUITY: 2 days PAIN SCORE: 4/10 LOCATION: Left pelvis MEASUREMENTS: UTERUS: Surgically absent ENDOMETRIAL STRIPE: Non visualized RIGHT OVARY: 1.5 x 0.9 x 0.9 cm LEFT OVARY: 3.8 x 2.6 x 2.5 cm FINDINGS: UTERUS: Surgically absent. RIGHT OVARY: Ovary contains no mass or significant cystic lesion. LEFT OVARY: Ovary contains no mass or significant cystic lesion other than 2.8 x 2.1 cm presumed functional cyst. MISCELLANEOUS: Minimal free fluid. CONCLUSION: Prominent cyst left ovary within normal limits for age. Status post hysterectomy. Right ovary is unre markable. Elliot Mckinnon MD on January 04, 2018 at 10:54 Board Certified Radiologist. This report was verified electronically.
[2018-01-04] MEDS: MAGNESIUM OXIDE 400 MG TAB PO SCH (11:33)
[2018-01-04] MEDS ORDERED: TRAM50 PO (11:33)
--- NOTE | 2018-01-04 11:59 | HHI.DS ---
Discharge Summary Admission Date Jan 01, 2018 at 18:25 Discharge Date: Jan 04, 2018 Admitting Diagnosis Abdominal pain, nausea, vomiting, diarrhea (1) Diarrhea in adult patient ICD Code: R19.7 - Diarrhea, unspecified (2) Abdominal pain ICD Code: R10.9 - Unspecified abdominal pain Procedures None Brief History - From Admission nausea, vomiting, diarrhea diarhrea is for a month - 8-9 x a day, or soon as she eats something was on outpatient antibiotics luis manuel arellano has been eating broths and sti having darrhe abdominal pain is both upper and lower abdomena dn across to flank bialterally never had fever was on prednisone at home cholecystectomy was about 2 yrs ago- but was normal bowel movement after that, and all symptoms happened only past one month vomiting is about 5 x a day - for past 3 days no blood in it only when she wipes her buttocks, that she has streaks of blood- has hx of throbosed hemorroids abdominal pain is recent- maybe 4 days ago has increase of synthroid from 125 to 150 mcg about 4 weeks ago was told parathyroid issues and was waiting for insurance issues to see endocrinoogist have been havign palpitiation but no chest pain dyspnea is only last night, partly because she did not take her xanax dizziness because she has no strenght and even needed help from for taking shower has stage IV kidney dx was told she has nephrotic syndrome- [facility] Dr Enriquez did have kidney biopsy- was told nephrotic syndrome, but not due to SLE father has PCKD noticed she has to push hard to urinate, for past few weeks- has hx of kidney stones prior requring sx, and was told by her neph that it maybe secondary to it CBC/BMP: 01/04/18 0507 01/04/18 0507 Significant Findings Laboratory Tests Test 01/01/18 15:05 01/02/18 05:55 01/02/18 12:45 01/03/18 10:50 C-Reactive Protein 1.70 MG/DL (0.00-0.30) Triglycerides Level 287 MG/DL (42-150) LDL Cholesterol 114 MG/DL (0-99) HDL Cholesterol 26.3 MG/DL (40.0-60.0) White Blood Count 11.4 TH/MM3 (4.0-11.0) Hemoglobin 10.4 GM/DL (11.6-15.3) Hematocrit 33.4 % (35.0-46.0) Mean Corpuscular Volume 78.9 FL (80.0-100.0) Mean Corpuscular Hemoglobin 24.5 PG (27.0-34.0) Mean Corpuscular Hemoglobin Concent 31.0 % (32.0-36.0) Creatinine 1.90 MG/DL (0.50-1.00) 1.90 MG/DL (0.50-1.00) Total Protein 6.1 GM/DL (6.4-8.2) Albumin 2.5 GM/DL (3.4-5.0) Calcium Level 8.0 MG/DL (8.5-10.1) 7.7 MG/DL (8.5-10.1) Magnesium Level 1.2 MG/DL (1.5-2.5) 1.2 MG/DL (1.5-2.5) Aspartate Amino Transf (AST/SGOT) 11 U/L (15-37) Chloride Level 109 MEQ/L (98-107) 108 MEQ/L (98-107) Estimat Glomerular Filtration Rate 29 ML/MIN (>89) 29 ML/MIN (>89) Hemoglobin A1c 6.3 % (4.3-6.0) Lipase 424 U/L (73-393) Random Glucose 117 MG/DL (74-106) Test 01/04/18 05:07 Hemoglobin 10.8 GM/DL (11.6-15.3) Hematocrit 34.4 % (35.0-46.0) Mean Corpuscular Volume 78.7 FL (80.0-100.0) Mean Corpuscular Hemoglobin 24.7 PG (27.0-34.0) Mean Corpuscular Hemoglobin Concent 31.4 % (32.0-36.0) Blood Urea Nitrogen 6 MG/DL (7-18) Creatinine 1.90 MG/DL (0.50-1.00) Albumin 2.7 GM/DL (3.4-5.0) Calcium Level 7.8 MG/DL (8.5-10.1) Chloride Level 112 MEQ/L (98-107) Estimat Glomerular Filtration Rate 29 ML/MIN (>89) Imaging Last Impressions Pelvis Ultrasound 01/04/18 0000 Signed Impressions: Service Date/Time: January 09:21 - CONCLUSION: Prominent cyst left ovary within normal limits for age. Status post hysterectomy. Right ovary is unremarkable. Elliot Mckinnon MD Abdomen/Pelvis CT 01/03/18 0000 Signed Impressions: Service Date/Time: Wednesday, January 03, 2018 17:56 - CONCLUSION: 1. Hepatomegaly. 2. 4.5 x 3.9 cm left adnexal mass which is indeterminate. Pelvic ultrasound may be helpful for further evaluation this finding if clinically indicated. 3. Left lower pole renal cyst measuring 3.2 cm. 4. Bibasilar atelectasis and/or scarring. Navarro Vazquez MD Abdomen Ultrasound 01/03/18 0000 Signed Impressions: Service Date/Time: Wednesday, January 03, 2018 08:12 - CONCLUSION: 1. No acute finding is identified to explain the abdominal pain. 2. Mild hepatomegaly with steatosis. There is a mildly complex left lower pole renal cystic lesion measuring 3 cm. Suhas Tanner MD PE at Discharge GENERAL: Well-developed, well-nourished, in no acute distress. alert and orientated HEENT: Head is normocephalic without any lesions or masses noted. Facial features are symmetric. Eyes: Extraocular muscles are intact. Conjunctivae were clear. NECK: Supple without any masses. Trachea midline no deviation. No JVD, CARDIAC: Regular rhythm, regular rate. S1/S2 are heard. No murmurs gallops or rubs. LUNGS: Clear to auscultation bilaterally. No wheeze, rhonchi or rales. No use of accessory muscles on inspiration or expiration. ABDOMEN: Soft, nontender. Nondistended. Bowel sounds heard in all 4 quadrants. No organomegaly or masses. Negative rebound, negative guarding EXTREMITIES: No edema, pulses are equal bilaterally. No cyanosis or clubbing NEUROLOGY: Mood and affect appear appropriate. Cranial nerves II through XII grossly intact. Moving all extremities, speech is clear Hospital Course 42-year-old female who originally presented the hospital because of intractable abdominal pain, nausea, vomiting, diarrhea. Patient was admitted to the hospital from [facility] for further evaluation and management. Was admitted with pain control, IV fluids, antiemetics. Patient had full workup with CT of the abdomen which did show a left adnexal mass which was confirmed to be a ovarian cyst by ultrasound. She had abdominal ultrasound which did not indicate any acute abnormality. Does indicate hepatomegaly with steatosis. GI was consulted who did order full stool studies which were completely negative. Patient's pain was controlled on oral medication with combination of breakthrough Dilaudid. On a daily basis the patient continued to ask for increase in Dilaudid. GI spoke with the patient today who recommended EGD/ colonoscopy. However the patient wants to go home. He was indicated that if she wanted to have endoscopy performed in the hospital to notify them and would make arrangements. However after discussing with the patient today she does feel better she is tolerating liquids. Pain mostly controlled with medication because she is not complaining of any increased pain. She does not want to have endoscopy performed during hospitalization. She did not want to undergo the prep because of the recent diarrhea that she has had. Patient would prefer to undergo outpatient procedure. She does want to go home. She states that she is feeling much better and can she have prescriptions for tramadol upon discharge. Patient clinically stable at this time. Patient will need outpatient follow-up with belt cleaner. We will plan discharge accordingly. Pt Condition on Discharge: Stable Discharge Disposition: Discharge Home Discharge Time: > 30 minutes Discharge Instructions DIET: Follow Instructions for: As Tolerated, No Restrictions Activities you can perform: Regular-No Restrictions Follow up Referrals: PCP Follow-up - 1 Week New Medications: Walker with Front Wheels (Walker with Front Wheels) 1 Mis Mis EA .XX DIRECTED, #1 0 Refills Tramadol (Ultram) 50 Mg Tab 50 MG PO Q6H PRN for Pain, #20 TAB Continued Medications: Alprazolam (Xanax) 1 Mg Tab 1 MG PO Q6H PRN for ANXIETY, TAB 0 Refills Levothyroxine (Levothyroxine) 125 Mcg Tab 125 MCG PO DAILY for Thyroid, #30 TAB 0 Refills Lovastatin (Lovastatin) 40 Mg Tab 40 MG PO DAILY for Cholesterol Management, TAB 0 Refills Magnesium Oxide (Magnesium Oxide) 400 Mg Tab 400 MG PO DAILY for Nutritional Supplement for 10 Days, #10 TAB 0 Refills Omeprazole (Omeprazole) 40 Mg Cap 40 MG PO DAILY, #30 CAP 0 Refills Propranolol (Propranolol) 80 Mg Tab 80 MG PO Q12HR, #60 TAB 0 Refills Tony Arce Jan 04, 2018 11:59
--- NOTE | 2018-01-04 11:59 | HHI.DCPOC ---
Discharge Care Plan Diagnosis: (1) Abdominal pain (2) Diarrhea in adult patient Goals to Promote Your Health * To prevent worsening of your condition and complications * To maintain your health at the optimal level Directions to Meet Your Goals Take your medications as prescribed Follow your dietary instruction Follow activity as directed Keep your appointments as scheduled Take your immunizations and boosters as scheduled If your symptoms worsen call your PCP, if no PCP go to Urgent Care Center or Emergency Room Smoking is Dangerous to Your Health. Avoid second hand smoke Call the 24-hour hour crisis hotline for domestic abuse at Tony Arce Jan 04, 2018 11:59
[2018-01-04 12:00] VITALS: BP 151/77; PULSE 89; RESP 16; TEMP 97.5; O2SAT 93
[2018-01-04] MEDS ORDERED: MAGNESIUM CITRATE SOLN 300 ML BTL PO ONE ×2 (13:00→18:00)
== END 2018-01-04 13:05 | disposition home or self-care (01) | DRG 392 ==
LOC: PHEDDLT 18:24 → PH3B 18:25 → PHEDA 18:25 → UNDOADMIN 18:25
PROVIDERS: ADMIT Hospitalist; ATTEND Hospitalist
DX: R19.7 Diarrhea, unspecified (principal); I12.9 Hypertensive chronic kidney disease with stage 1 through stage 4 chronic kidney disease, or unspecified chronic kidney disease; N18.4 Chronic kidney disease, stage 4 (severe); M32.9 Systemic lupus erythematosus, unspecified; Z79.52 Long term (current) use of systemic steroids; N04.9 Nephrotic syndrome with unspecified morphologic changes; K86.1 Other chronic pancreatitis; K76.0 Fatty (change of) liver, not elsewhere classified; Z68.41 Body mass index [BMI] 40.0-44.9, adult; E66.9 Obesity, unspecified; R10.9 Unspecified abdominal pain; R16.0 Hepatomegaly, not elsewhere classified; Z91.041 Radiographic dye allergy status; E83.42 Hypomagnesemia; D64.9 Anemia, unspecified; E03.9 Hypothyroidism, unspecified; F17.210 Nicotine dependence, cigarettes, uncomplicated; E78.5 Hyperlipidemia, unspecified; N83.202 Unspecified ovarian cyst, left side; Z85.820 Personal history of malignant melanoma of skin
CPT/HCPCS: 74176; 76700; 76830; 76856; 76937; 80048; 80053; 80061; 82150; 82272; 82948; 83036; 83605; 83690; 83735; 84100; 84439; 84443; 85025; 86140; 87328; 87329; 87493; 87506; J0780; J1170; J1650; J3480; J7030; J7120; Q0169